=== PATIENT | male | born 1980 | race Caucasian/White ===

== ENCOUNTER 2018-12-07 14:36 | Emergency (ER) | payer OTHER, SELFPAY ==
[2018-12-07 14:38] VITALS: BP 120/73; PULSE 73; RESP 22; TEMP 36.1; O2SAT 98; BMI 25.7
--- NOTE | 2018-12-07 14:42 | ED.UPPEXIN ---
HPI - Extremity Injury (Upper) <HELLEN Amaro - Last Filed: 12/07/18 22:26> General Chief Complaint: Extremity Injury, Upper Stated Complaint: SEVERE RT SHOULDER/ARM PAIN Time Seen by Provider: 12/07/18 14:42 Source: patient Mode of arrival: ambulatory Limitations: no limitations History of Present Illness HPI narrative: 38-year-old male with history of Crohn's disease and is everyday smoker here for complaint of pain to his right shoulder over the past week and a half. He denies any trauma to the right shoulder. He states that he woke up with the pain. He reports increasing pain over the last couple of days he felt a pop while he was stretching to the right shoulder area and has worse pain since that timeframe. He reports increased pain with movement to the right shoulder. He denies any other concerns or complaints at this timeframe. complaint: injury to: right and shoulder Related Data Home Medications Medication Instructions Recorded Confirmed Mesalamine (ASACOL) 400 mg PO QID #0 05/10/12 adalimumab [Humira] 40 mg MR ONCE EVERY TWO WEEKS #0 05/10/12 zolpidem 0 mg PO HS #0 06/13/12 trazodone 200 mg PO HS #0 08/29/12 venlafaxine [Effexor XR] 75 mg PO QDAY #0 08/29/12 Previous Rx's Medication Instructions Recorded cyclobenzaprine 10 mg PO TID PRN #20 tab 12/07/18 hydrocodone-acetaminophen [Independence] 1 tab PO Q6H PRN #10 tab 12/07/18 Allergies Allergy/AdvReac Type Severity Reaction Status Date / Time silver nitrate Allergy Unknown Unverified 02/21/18 12:21 [SILVER NITRATE] NICKEL SULFATE Allergy Mild RASH Uncoded 02/21/18 12:21 Review of Systems <HELLEN Amaro - Last Filed: 12/07/18 22:26> Constitutional Denies chills, Denies fever(s), Denies lethargy and Denies weakness ENT Ears, Nose, Mouth, and Throat: Denies change in voice, Denies neck pain and Denies sore throat Cardiovascular Denies chest pain, Denies irregular heart rhythm, Denies lightheadedness, Denies palpitations, Denies dyspnea, Denies dyspnea on exertion and Denies orthopnea Respiratory Denies cough, Denies dyspnea, Denies dyspnea on exertion and Denies wheezing Genitourinary Denies hematuria, Denies flank pain, Denies urinary incontinence and Denies urinary urgency Musculoskeletal Denies neck pain Comments: Right shoulder pain Integumentary/Breasts Denies pruritus, Denies erythema, Denies rash and Denies wounds Neurologic Denies weakness Endocrine Denies palpitations Hematologic/Lymphatic Denies easy bruising Allergic/Immunologic Denies wheezing Exam <HELLEN Amaro - Last Filed: 12/07/18 22:26> Initial Vital Signs Initial Vital Signs: Vital Signs Temperature 97.0 F L 12/07/18 14:38 Pulse Rate 73 12/07/18 14:38 Respiratory Rate 22 12/07/18 14:38 Blood Pressure 120/73 12/07/18 14:38 Pulse Oximetry 98 12/07/18 14:38 Const General: cooperative and well developed Nutritional Appearance: well nourished Orientation: alert, awake, oriented x3 and not confused HENMT Mouth: oral mucosae normal and mucous membranes abnormal Eyes Conjunctivae: conjunctivae normal Sclera: sclerae normal Pupils: PERRL EOM: EOM intact bilaterally Resp Effort & Inspection: normal respiratory effort, able to speak in complete sentences, no respiratory distress and no use of accessory muscles Auscultation: clear to auscultation bilaterally, no rales, no rhonchi and no wheezes Cardio Rate: regular rate Rhythm: regular rhythm Heart Sounds: no click, no gallops, no murmurs and no rubs Pulses: normal peripheral pulses Skin General: no rashes or lesions noted, No jaundice and No petechiae Neuro General: alert, oriented x3, gait normal and no focal motor deficits Speech: speech normal Extrem Other: Right shoulder with no signs of trauma. Tenderness on palpation from the trapezius region into the posterior right shoulder. Patient with full range of motion. Increased pain with motion past 40? of both abduction and flexion. Distal sensation is intact. Distal range of motion is intact. Distal pulses are intact <Ken Ibarra DO - Last Filed: 12/08/18 07:02> Initial Vital Signs Initial Vital Signs: Vital Signs Temperature 97.0 F L 12/07/18 14:38 Pulse Rate 73 12/07/18 14:38 Respiratory Rate 22 12/07/18 14:38 Blood Pressure 120/73 01/25/19 14:38 Pulse Oximetry 98 12/07/18 14:38 Course <HELLEN Amaro - Last Filed: 12/07/18 22:26> Orders Ordered: ED Orders 12/07/18 15:07 XR shoulder RT min 2V Stat Vital Signs - 8 hr 12/07/18 14:38 12/07/18 16:26 Temperature 97.0 F L 98.3 F Pulse Rate 73 98 H Respiratory Rate 22 Blood Pressure 120/73 Blood Pressure [Left Arm] 107/73 Pulse Oximetry 98 97 <Ken Ibarra DO - Last Filed: 12/08/18 07:02> Orders Ordered: ED Orders 12/07/18 15:07 XR shoulder RT min 2V Stat Vital Signs - 8 hr 12/07/18 14:38 12/07/18 16:26 Temperature 97.0 F L 98.3 F Pulse Rate 73 98 H Respiratory Rate 22 Blood Pressure 120/73 Blood Pressure [Left Arm] 107/73 Pulse Oximetry 98 97 MDM - Extremity Injury (Upper) <HELLEN Amaro - Last Filed: 12/07/18 22:26> Imaging Data Right shoulder: Radiologist's impression: [place] [address] XRay Report Signed Patient: Jong Fox EMR#: [id number] : 1980Acct:[id number] Age/Sex: 38 / MDate of Service: 12/07/18 Loc: ED Accession Number: [id number] Procedure: XR shoulder RT min 2V Ordering Provider: Gurinder Barrow PROCEDURE: XR SHOULDER RT MIN 2V INDICATIONS: Right shoulder pain TECHNIQUE: 3 views of the shoulder were acquired. COMPARISON: None. FINDINGS: Bones: No fractures or dislocations. No suspicious bony lesions. Visualized ribs appear intact. Soft tissues: No suspicious soft tissue calcifications. IMPRESSION: No acute fracture. No osseous lesion. If symptoms and/or clinical suspicion for pathology persist, further assessment with repeat, or advanced imaging (e.g., CT, MRI, or bone scan) may be helpful for further assessment. Dictated by: Rosanna Ceballos M.D. on 12/07/2018 at 15:18 Approved by: Rosanna Ceballos M.D. on 12/07/2018 at 15:19 [facility] Narrative Medical decision making narrative: X-ray the right shoulder was obtained was negative for any acute fractures or dislocations. Signs and symptoms presents as strain into the right shoulder. [id number] ibuprofen as needed for any discomfort. Cyclobenzaprine as prescribed to help with any muscle spasm and tension. Rest area. Follow up with primary care provider next week for re-evaluation. If continued pain recommend MRI of the right shoulder for any worsening symptoms return emergency room. Small amount of Independence is provided for breakthrough pain not covered by the ibuprofen. Patient instructed not to use Independence in conjunction with the cyclobenzaprine. Discharge Plan Departure Patient Disposition: Home Clinical Impression: Right shoulder strain Discharge Date/Time: 12/07/18 17:11 Interventions: ED Discharge Assessment Last Done: 12/07/18 17:08 Instructions: DI for Shoulder Pain Activity Restrictions/Additional Instructions: X-ray the right shoulder was obtained was negative for any acute findings. Signs symptoms presents strain to the right shoulder. Use [id number] ibuprofen as needed for any discomfort. A muscle relaxer is also prescribed to help keep muscles loose. Use as directed. No driving while on the muscle relaxer as it can make you drowsy. Rest area. Follow up with primary care provider next week for re-evaluation. If continued pain may be have advanced imaging such as MRI for further evaluation. Small amount of Independence is prescribed for breakthrough pain. For any worsening symptoms return to the emergency room. Do not use the Independence in conjunction with a muscle relaxer. No driving while on the Independence either. Prescriptions: New cyclobenzaprine 10 mg tablet 10 mg PO TID PRN (Reason: muscle spasm) Qty: 20 RF: 0 hydrocodone-acetaminophen [Independence] 5-325 mg tablet 1 tab PO Q6H PRN (Reason: pain) Qty: 10 RF: 0 No Action Mesalamine (ASACOL) 400 mg PO QID Qty: 0 RF: 0 adalimumab [Humira] 40 MG/0.8 ML syringe kit 40 mg MR ONCE EVERY TWO WEEKS Qty: 0 RF: 0 zolpidem 5 MG tablet PO HS Qty: 0 RF: 0 venlafaxine [Effexor XR] 75 MG capsule,extended release 24hr 75 mg PO QDAY Qty: 0 RF: 0 trazodone 100 MG tablet 200 mg PO HS Qty: 0 RF: 0 Referrals: Angel Sotelo MD [Non-Staff] - <Ken Ibarra DO - Last Filed: 12/08/18 07:02> Cosign ED Attending Claudia Attestation: I was available for consultation during this patient's emergency department encounter
--- NOTE | 2018-12-07 15:07 | DI.RAD.S_ITS ---
PROCEDURE: XR SHOULDER RT MIN 2V INDICATIONS: Right shoulder pain TECHNIQUE: 3 views of the shoulder were acquired. COMPARISON: None. FINDINGS: Bones: No fractures or dislocations. No suspicious bony lesions. Visualized ribs appear intact. Soft tissues: No suspicious soft tissue calcifications. IMPRESSION: No acute fracture. No osseous lesion. If symptoms and/or clinical suspicion for pathology persist, further assessment with repeat, or advanced imaging (e.g., CT, MRI, or bone scan) may be helpful for further assessment. Dictated by: Rosanna Ceballos M.D. on 12/07/2018 at 15:18 Approved by: Rosanna Ceballos M.D. on 12/07/2018 at 15:19
[2018-12-07 16:26] VITALS: BP 107/73; PULSE 98; TEMP 36.8; O2SAT 97
== END 2018-12-07 17:11 | disposition home or self-care (01) ==
PROVIDERS: Emergency Provider Nurse Practitioner Family
DX: S46.911A Strain of unspecified muscle, fascia and tendon at shoulder and upper arm level, right arm, initial encounter (principal)
CPT/HCPCS: 73030; 99282; 99283